=== PATIENT | female | born 1935 | race Caucasian/White ===

== ENCOUNTER 2018-04-18 22:45 | Inpatient (IN) | payer MEDICARE ==
[~2018-04-18] VITALS: Ht 147.3 cm; Wt 50.3 kg
--- NOTE | ~2018-04-18 | PR ---
[place], [place] PROGRESS NOTE NAME: RAVINDRA STEPHENS UNIT #: [id number] ROOM: 314 DOCTOR: DMITRIY SMITH MD BIRTHDATE: [birth year] DOS: 04/26/2018 INTERVAL NOTE CHIEF COMPLAINT: "I feel better, thank you for asking." SUMMARY OF THE VISIT: The patient was interviewed as she was sitting eating her breakfast. This was the first time she was out of her bed and she did not appear distraught and actually stated she is feeling better. She reported to me that she slept well and actually feels like eating this morning. MENTAL STATUS: She is alert and oriented with significant time gaps. Mood does seem to be finally trending towards euthymia. Affect is more appropriate. There is no vianey or hypomania. There were no voice delusional or paranoid symptoms. Short-term memory continues to be problematic. PLAN: I will go ahead and increase the nighttime Zyprexa from 5 to 7.5 mg at bedtime, engage in individual and lauren milieu activity, returning to the least restrictive environment when psychiatrically stable. DMITRIY SMITH MD CM:PNTRANS [id number] DMITRIY SMITH MD 04/26/18 1150 interface
--- NOTE | ~2018-04-18 | PR ---
[place], [place] PROGRESS NOTE NAME: RAVINDRA STEPHENS UNIT #: [id number] ROOM: 314 DOCTOR: KELSEY STEWART CNP BIRTHDATE: [birth year] DOS: 04/29/2018 CHIEF COMPLAINT: "I'm very good today." SUMMARY OF VISIT: The patient was interviewed as she sat eating her lunch in the dining room. The patient reports that she has a good appetite and that she slept well last night. Staff reports that the patient has not been exhibiting any behaviors today. She has been pleasant and cooperative. She has been taking her medications and juice. No paranoia or delusions noted today. MENTAL STATUS EXAMINATION: The patient was alert and oriented to herself. She was pleasant and cooperative with me. No vianey or hypomania noted. No delusions or paranoia noted. No psychotic symptoms noted. No auditory or visual hallucinations noted. Her mood was calm. No aggression or agitation noted. Affect congruent with mood. No lethargy noted. PLAN: Continue the patient's medications as prescribed as she appears to be tolerating them without any side effects. We will continue to encourage the patient to engage in individual and lauren milieu activity. Continue fall and safety precautions. Plan to return the patient to the least restrictive environment when she is considered psychiatrically stable. Kelsey Stewart CNP CM:PNTRANS [phone] KELSEY STEWART CNP 04/30/18 0208 interface
--- NOTE | ~2018-04-18 | PR ---
[place], [place] PROGRESS NOTE NAME: RAVINDRA STEPHENS UNIT #: [id number] ROOM: 314 DOCTOR: DMITRIY SMITH MD BIRTHDATE: [birth year] DOS: 04/30/2018 INTERVAL NOTE CHIEF COMPLAINT: "Oh, I don't need anything, thank you for asking, I already have coffee." SUMMARY OF THE VISIT: The patient was interviewed as she was sitting watching television, eating her breakfast. She had most of her breakfast eaten and was sipping on some coffee. She was pleasant and cooperative with me, although nurses do report that she did require p.r.n. intervention with excellent results. It appears that when she gets the Geodon, she has a very substantial improvement that last evening and into the next day. She tolerates the Geodon well. MENTAL STATUS: She is alert and oriented to person, not necessarily place and certainly not to time. Mood does still seem to be labile. Affect at times inappropriate. There is no vianey or hypomania. She is somewhat paranoid and delusional. Short-term memory remains poor. PLAN: I will discontinue her Risperdal in lieu of Geodon 40 mg in the morning and 60 mg at night. We will see if the oral form works as well as the intramuscular and we will monitor for risk, benefits, engage in individual and lauren milieu activity, returning to the least restrictive environment when psychiatrically stable. DMITRIY SMITH MD CM:PNTRANS 0 [phone] DMITRIY SMITH MD 04/30/18 1218 interface
--- NOTE | ~2018-04-18 | PR ---
[place], [place] PROGRESS NOTE NAME: RAVINDRA STEPHENS UNIT #: [id number] ROOM: 314 DOCTOR: DMITRIY SMITH MD BIRTHDATE: [birth year] DOS: 05/03/2018 INTERVAL NOTE CHIEF COMPLAINT: "Oh honey just keep up the good work, thank you so much." SUMMARY OF THE VISIT: The patient was interviewed as she was eating breakfast. She stopped and engaged readily in conversation. She was very bright and pleasant and voiced no complaints. She thanked me profusely for all the assistance I have given her. MENTAL STATUS: She is alert and oriented to person, place, not necessarily time. Mood does seem to have strongly trended towards euthymia. Affect is much more appropriate. Her speech rate and pattern is within normal limits. There is no hypomania or vianey. There are no gross psychotic symptoms. Short-term memory continues to be problematic. Otherwise, she is intact. PLAN: I will continue her current psychotropic regimen, continue to engage in individual and lauren milieu activity, returning to the least restrictive environment when psychiatrically stable. DMITRIY SMITH MD CM:PNTRANS [id number] DMITRIY SMITH MD 05/04/18 0237 interface
--- NOTE | ~2018-04-18 | PR ---
[place], [place] PROGRESS NOTE NAME: [facility]PH[id number] UNIT #: [id number] ROOM: 314 DOCTOR: DMITRIY SMITH MD BIRTHDATE: [birth year] DOS: 05/01/2018 CHIEF COMPLAINT: "Oh, I am fine, thank you for asking." SUMMARY OF THE VISIT: The patient was interviewed as she was sitting down to have her breakfast. She had not touched it, but did stop and engage in conversation with us. She was pleasant and engaging and offered no complaints. There was no agitation or aggression. There was no paranoia. She does seem to be tolerating the oral Geodon well, and I do not see sedation, somnolence, extrapyramidal symptoms or tardive dyskinesia. Nurses report a substantial improvement has been noted since the Geodon has been started and her behavior has been much more redirectable and on target. MENTAL STATUS: She remains alert and oriented to person, place, not necessarily time. Mood does seem to be strongly trending towards euthymia. Affect is more appropriate. There is no vianey, hypomania or psychosis. Short term memory continues to have issues. PLAN: We will maintain her current psychotropic regimen. Continue to engage in individual and lauren milieu activity, returning to the least restrictive environment when psychiatrically stable. DMITRIY SMITH MD CM:PNTRANS [phone] DMITRIY SMITH MD 05/01/18 1020 interface
--- NOTE | ~2018-04-18 | CON ---
[place], [place] REPORT OF CONSULTATION NAME: [id number] UNIT #: [id number] ROOM: 314 DOCTOR: PHD HENRY ISRAEL BIRTHDATE: [birth year] DOS: 04/19/2018 HISTORY OF PRESENT ILLNESS: The patient is an 82-year-old female referred by Dr. Polanco for a competency evaluation. At the present time, she is on the [facility]. The patient is a poor historian. She says she lives with her son and is a . She could not say how many children she has. She denied alcohol, tobacco and illegal drug use. PAST MEDICAL HISTORY: Chronic kidney disease, dementia, depression. MEDICATIONS: Exelon, Namenda, Remeron, Theragran, Risperdal, Geodon, Ativan. The patient was awake, alert and oriented to person. She gave the date as , 05/15/2019. She stated at first that Leandro was the president, then later self corrected to Elis. Mood was depressed with the patient crying, stating that she just lost her youngest son, although she could not say how he . She was confused in conversation demonstrating significant memory deficits. She was initially brought to the hospital due to a striking change in her mental status. While in the Emergency Room, she was found to have a UTI. Per her medical record, she has a history of confusion, to what extent her current presentation is due to her UTI remains unclear. I will continue to follow her to assess for the need for guardianship. DIAGNOSES: Major depressive disorder, recurrent with psychotic features, Alzheimer's dementia, rule out delirium. RECOMMENDATIONS: The patient does not appear to be competent at this time; however, she does have a UTI. I will reassess her on Monday to allow for continued medical treatment and to determine the need for guardianship. Thank you very much for this consult. Amy Israel, PhD CM:CONSTR:REPORT OF CONSULTATION 1643 04/20/18 0147 interface
--- NOTE | ~2018-04-18 | PR ---
[place], [place] PROGRESS NOTE NAME: RAVINDRA STEPHENS UNIT #: [id number] ROOM: 314 DOCTOR: DMITRIY SMITH MD BIRTHDATE: [birth year] DOS: 04/25/2018 INTERVAL NOTE CHIEF COMPLAINT: "Oh, I just want to get better." SUMMARY OF THE VISIT: The patient was interviewed as she was resting quietly in her bed. She reports that she was still feeling somewhat nauseated and she does not remember falling last evening, but did not sustain any injuries. This morning, she says she would like to attempt to eat something and hope she can how hold it down. She was pleasant and cooperative and very engaging. MENTAL STATUS: She is alert and oriented with significant time gaps. Mood does seem to be more euthymic. Affect is more appropriate. She is more cooperative and engaging in conversation. There are no symptoms of hypomania or vianey. There is no gross psychosis. Short-term memory continues to be problematic. PLAN: I will renew her Ativan p.r.n., should she require it. I will discontinue the Abilify in lieu of Zyprexa 5 mg at bedtime. The Zyprexa should augment the effectiveness of the antidepressant, stabilize her mood and decrease any psychosis. It also has antinausea and vomiting properties which we can at least use, endorses benefit. We will engage in individual and lauren milieu activity, returning to the least restrictive environment when psychiatrically stable. DMITRIY SMITH MD CM:PNTRANS [id number] DMITRIY SMITH MD 04/25/18 1153 interface
--- NOTE | ~2018-04-18 | PR ---
[place], [place] PROGRESS NOTE NAME: [facility]DRA STEPHENS [id number] UNIT #: [id number] ROOM: 314 DOCTOR: DMITRIY SMITH MD BIRTHDATE: [birth year] DOS: 04/24/2018 CHIEF COMPLAINT: "Yeah, I thought they were trying to poison me yesterday. I think though I'll have breakfast today." SUMMARY OF THE VISIT: The patient was interviewed as she was resting quietly in bed. She did seem to be more goal oriented in her thinking and did seem to be slightly less paranoid and delusional than she had been previously. She was able to at least entertain the possibility that people are not out to get her here, but stated that she believed that truly yesterday. She did not experience any side effects from any of the medications and I did not see sedation, somnolence, extrapyramidal symptoms or tardive dyskinesia. MENTAL STATUS: She is alert and oriented to person, place, not necessarily time. Mood does seem to be trending towards euthymia. Affect is more appropriate. There is no vianey or hypomania. The delusions seem to be lessening in frequency and intensity. Short term memory continues to be problematic. PLAN: I will renew her p.r.n. Ativan should she require intervention and increase her Abilify from 10 to 15 mg at bedtime in an effort to further eliminate psychosis and stabilize mood. Engage in individual and lauren milieu activity, returning to the least restrictive environment when psychiatrically stable. DMITRIY SMITH MD CM:PNTRANS [id number] DMITRIY SMITH MD 04/25/18 0051 interface
--- NOTE | ~2018-04-18 | PR ---
[place], [place] PROGRESS NOTE NAME: RAVINDRA STEPHENS UNIT #: [id number] ROOM: 314 DOCTOR: PHD HENRY ISRAEL BIRTHDATE: [birth year] DOS: 04/23/2018 I followed up with the patient for competency. She declined to speak with me in length. She was oriented to person, stated she was at [facility] and gave the date as 07/23/2018. She gave Leandro as a president and could not name any current events. She could spell world forwards, but not backwards. I will attempt to reengage her tomorrow. Amy Israel, CM:PNMARK [phone] PHD HENRY ISRAEL 04/24/18 1134 interface
--- NOTE | ~2018-04-18 | PR ---
[place], [place] PROGRESS NOTE NAME[id number] UNIT #: [id number] ROOM: 314 DOCTOR: DMITRIY SMITH MD BIRTHDATE: [birth year] DOS: 04/23/2018 INTERVAL NOTE CHIEF COMPLAINT: "I am going to be here soon. They are trying to kill me." SUMMARY OF THE VISIT: The patient was interviewed. She was sitting there in front of her entire plate of breakfast and stated to me she would not eat because she was fearful that she was going to . She did state that she had requested a piece of chocolate cake, but the staff deliberately told her she could not have it in an attempt to punish her. She continues to be very depressed and very nihilistic in her thinking. MENTAL STATUS: She is alert and oriented with significant time gaps. Mood does seem to be very depressed and down. There is also a significant amount of paranoia and neologism present. Short-term memory has gaps. PLAN: I will maximize out her dose of Namenda, bringing it to 10 mg b.i.d. I will increase her Abilify from 2-10 mg at bedtime in an effort to combat the psychotic symptoms as well as to augment the antidepressant. We will continue to engage in individual and lauren milieu activities, returning to the least restrictive environment when psychiatrically stable. DMITRIY SMITH MD CM:PNTRANS [id number] DMTIRIY SMITH MD 04/23/18 1252 interface
--- NOTE | ~2018-04-18 | WRIGHTHP ---
[place], [place] PATIENT HISTORY AND PHYSICAL EXAM NAME: [facility] STEPHENS [id number] UNIT #: [id number] ROOM: 314 DOCTOR: DMITRIY SMITH MD BIRTHDATE: [birth year] DOS: 04/19/2018 INITIAL PSYCHIATRIC EVALUATION CHIEF COMPLAINT: "Call my for me, I don't need to be here, I need to go home." HISTORY OF PRESENT ILLNESS: This is an 82-year-old white female who was sent here on an involuntary basis from [facility] Emergency Room. The patient was brought there by her son because the patient had a substantial change in mental status. She became increasingly more confused, although her baseline is one of confusion. She also had been actively hallucinating and was very delusional. She was seeing things that were not there and she was responding to unforeseen others. While in the Emergency Room, she was found to have a UTI and was started on Bactrim. Given the severity of her symptoms and the fact that she was not attending to her ADLs and was acting quite bizarrely, it was felt that a further psychiatric inpatient stay was warranted. She was admitted now to rule out further organic factors, to stabilize on medication, to engage in individual and lauren milieu activity with the ultimate plan to return to the least restrictive environment when psychiatrically stable. PAST MEDICAL HISTORY: Remarkable for a history of major depression, recurrent; Alzheimer dementia and chronic kidney disease stage 3. SOCIAL HISTORY: The patient does not drink alcohol. She does not smoke cigarettes and she does not use illicit drugs. MENTAL STATUS: She is alert and oriented to person, unclear place, not time. Mood this morning seem to be very depressed and very anxious. She was somewhat fretful and did not always answer questions appropriately. She was very much fixated on leaving the hospital and being able to call her . She was somewhat guarded and suspicious and was not forthcoming with information. She does process conversation slowly and short term memory continued to be problematic. DIAGNOSIS: Major depression, recurrent with psychotic features, Alzheimer dementia. PLAN: I have discontinued her Zoloft and her Aricept in lieu of Exelon patch 4.6 mg a day and Remeron 15 mg at bedtime. I have also ordered a low dose Risperdal 0.5 mg twice daily to impact positively on her psychotic symptoms. We will now also augment the Exelon with Namenda starting at 5 mg a day. Routine screening examinations have been unremarkable. We will continue to rule out organic factors, continue to engage in individual and lauren milieu activity with the plan to return to the least restrictive environment when stable. [place], [place] PATIENT HISTORY AND PHYSICAL EXAM NAME: RAVINDRA STEPHENS UNIT #: [id number] ROOM: [facility] DOCTOR: DMITRIY SMITH MD BIRTHDATE: [birth year] DMITRIY SMITH MD CM:HISPHYS:PATIENT HISTORY AND PHYSICAL EXAMINATION [phone] DMITRIY SMITH MD 04/19/18 1209 interface
--- NOTE | ~2018-04-18 | PR ---
[place], [place] PROGRESS NOTE NAME: RAVINDRA STEPHENS UNIT #: [id number] ROOM: 314 DOCTOR: KELSEY STEWART CNP BIRTHDATE: [birth year] DOS: 04/28/2018 CHIEF COMPLAINT: "I am making a mess." SUMMARY OF THE VISIT: The patient was interviewed as she was standing in the hallway shredding her brief. The patient engaged readily in conversation with me. She reports that she noted she is making a mess; however, she will clean it up. The patient reports that she noted that her food is being poisoned and that her fluids are being poisoned and that we were all out to kill her. Staff reports that the patient only slept 3-1/2 hours last night and has been noncompliant with her medication. MENTAL STATUS: The patient was alert and oriented to herself. She was pleasant and cooperative with me; however, she is unable to be redirected at this time. The patient appears to be delusional as well as paranoid. No auditory or visual hallucinations noted. Her mood seems somewhat agitated and her affect is congruent with her mood. PLAN: I am going to discontinue her Zyprexa at bedtime. She has been noncompliant with medication. We will start her on Risperdal M-Tab 0.5 twice a day with the hopes that this will be able to be dissolved in fluids and that the patient will take her medication. We will continue to encourage the patient to engage in individual and lauren milieu activity. We will continue fall and safety precautions. We will plan to return the patient to the least restrictive environment when she is considered psychiatrically stable. Kelsey Stewart CNP CM:PNTRANS [phone] [id number] KELSEY STEWART CNP 04/28/181857 interface
--- NOTE | ~2018-04-18 | PR ---
[place], [place] PROGRESS NOTE NAME: [facility] STEPH[id number] UNIT #: [id number] ROOM: 314 DOCTOR: SAMIR, PHD FIGUEROA BIRTHDATE: [birth year] DOS: 04/24/2018 I met with the patient to follow up on guardianship versus power of finance attorney. The patient was awake, alert and oriented to person and time. She believes she is across the street from [facility]. She could name the president and spell world forwards and backwards, but became very easily confused. On serial sevens, she demonstrated significant short and long-term memory deficits conversationally. Affect was blunted and mood was stable. Speech was slow. Receptive and expressive language appeared within normal limits conversationally. Thought content was noteworthy for delusions. Insight and judgment were poor. The patient does appear to have improved somewhat, but still does not appear competent to make her own healthcare decisions at this time. In my opinion, the patient would benefit from establishing guardianship. DIAGNOSIS: DICTATION ENDS HERE Amy Israel, PhD CM:LUC [id number] PHD HENRY ISRAEL 04/25/18 0419 interface
--- NOTE | ~2018-04-18 | DS ---
[place], [place] DISCHARGE SUMMARY NAME: RAVINDRA STEPHENS [facility] #: [id number] UNIT #: [id number] ROOM: 314 DOCTOR: DMITRIY SMITH MD BIRTHDATE: [birth year] DOS: 05/04/2018 CHIEF COMPLAINT: "Call my for me, I don't need to be here, I need to go home." HISTORY OF PRESENT ILLNESS: This is an 82-year-old white female who was sent here on an involuntary basis from [facility] Emergency Room. The patient was brought there by her son because of a substantial change in mental status. The patient had become increasingly more confused and was actively hallucinating and very delusional. She was seeing things that were not there and was responding to unforeseen others. While in the Emergency Room, she was found to have a UTI and was started on Bactrim. Given the severity of her symptoms and her inability to attend to her ADLs, it was felt that an inpatient stabilization was warranted. SUMMARY OF HOSPITAL COURSE: The patient was admitted to the unit where her Zoloft and Aricept were discontinued in lieu of Exelon patch 4.6 mg a day and Remeron 15 mg at bedtime and low dose Risperdal was added to break the psychotic symptoms and later the Exelon was augmented with Namenda in order to fully improve ADLs, behavior and cognition. The patient tolerated the Exelon and the Namenda well and these were quickly brought to their maximum dose of Exelon patch 13.3 mg a day and Namenda 10 mg b.i.d. The patient did seem to do better when she received Geodon p.r.n. and the Risperdal was subsequently discontinued in lieu of Geodon 40 mg in the morning and 60 mg at night with extremely excellent results. The patient improved dramatically to the point where she was able to engage in individual and lauren milieu activities. She smiled readily and voiced positive plans for the future. She remains grossly confused, however, and did require a great deal of assistance with ADLs. Dr. Amy Israel, psychologist, did deem her incompetent and it was felt that she would do best with a long-term care placement. The patient was eventually discharged then to [facility] where we will follow. MENTAL STATUS AT DISCHARGE: The patient was alert and oriented to person, not necessarily place and certainly not time. Mood was euthymic. Affect appropriate. There is no vianey or hypomania. Short term memory is very poor. FINAL DIAGNOSES UPON DISCHARGE: Major depression, recurrent with psychotic features and Alzheimer's dementia. DISPOSITION: The patient is being admitted to [facility], I will be the treating psychiatrist of record. At the time of discharge, she was psychiatrically stable. There were no acute medical problems. All of her prescriptions were printed and were sent with her. [place], [place] DISCHARGE SUMMARY NAME: RAVINDRA STEPHENS UNIT #: [id number] ROOM: 314 DOCTOR: DMITRIY SMITH MD BIRTHDATE: [birth year] DMITRIY SMITH MD CM:DISCHPAT 0938 DMITRIY SMITH MD 05/04/18 0954 interface
--- NOTE | ~2018-04-18 | PR ---
[place], [place] PROGRESS NOTE NAME: RAVINDRA STEPHENS UNIT #: [id number] ROOM: 314 DOCTOR: DMITRIY SMITH MD BIRTHDATE: [birth year] DOS: 04/20/2018 INTERVAL NOTE CHIEF COMPLAINT: "I guess, I am here because I am not eating. If somebody helps me, I will go and have breakfast." SUMMARY OF THE VISIT: The patient was interviewed as she was lying in bed. She was resting in the position, but did awake easily and engaged readily in conversation. She reported to me that she has been here since the early part of March and that per her recollection, she is here because she has not been eating well. She was much more goal directed in her thinking than she was yesterday, much less flighty and distracted. She was not able to put a lot of detail behind her answers, but nonetheless did seem to be more cooperative. Nurses report that she did not sleep well last night and her p.o. intake has been significantly on the poor side. MENTAL STATUS: She is alert and oriented to person, possibly place, not to time. Mood does seem to be somewhat more euthymic. Affect is more appropriate. There is no vianey, hypomania or psychosis derived from my conversation; however, nurses report that she has been preoccupied that many of her children are , which is not reality. Short term memory continues to be problematic for her. PLAN: I will increase Exelon patch from 4.6 mg daily to 9.5 mg daily. I will plan to increase the Namenda and Exelon patch over the weekend as needed and as tolerated. We will engage in individual and lauren milieu activity with the plan to return to the least restrictive environment when psychiatrically stable. DMITRIY SMITH MD CM:PNTRANS 6 DMITRIY SMITH MD 04/20/18 0945 interface
--- NOTE | ~2018-04-18 | PR ---
[place], [place] PROGRESS NOTE NAME: [id number] UNIT #: [id number] ROOM: [id number] DOCTOR: DMITRIY SMITH MD BIRTHDATE: [birth year] DOS: 05/02/2018 CHIEF COMPLAINT: "Oh, I am okay, thanks for asking." SUMMARY OF THE VISIT: The patient was interviewed as she was sitting eating her breakfast. She was very engaging in conversation. There was no agitation or aggression. There was no mood lability. There are no psychotic symptoms voiced. Overall, she has trended towards significant improvement and has become very bright and pleasant. MENTAL STATUS: She is alert and oriented to person, place, but not time. Mood does seem to be strongly trending towards euthymia. Affect is more appropriate. There is no symptom suggestive of hypomania or vianey. There are no gross psychotic symptoms. Short term memory continues to have gaps, otherwise she is intact. PLAN: I will maintain her current psychotropic regimen, continue to engage in individual and lauren milieu activity with the ultimate plan to return to the least restrictive environment when psychiatrically stable. DMITRIY SMITH MD CM:PNTRANS [id number] DMITRIY SMITH MD 05/02/18 1357 interface
[2018-04-18] MEDS ORDERED: ZOLOFT100 MG PO (23:30)
[2018-04-18] MEDS ORDERED: ARICEPT10 M1 PO (23:31)
[2018-04-18] MEDS ORDERED: ONCE DAILY1 EACH PO (23:34)
[2018-04-18] MEDS ORDERED: MILK THISTLE140 MG PO (23:35)
[2018-04-19 00:38] VITALS: BP 118/58
[2018-04-19 01:00] VITALS: BP 118/58
[2018-04-19 02:15] LABS: BILIRUBIN NEGATIVE (NEGATIVE); BLOOD 2+ (NEGATIVE); CLARITY CLOUDY (CLEAR); COLOR YELLOW (YELLOW); GLUCOSE NEGATIVE (NEGATIVE); KETONE TRACE (NEGATIVE); LEUKO ESTERASE 3+ (NEGATIVE); NITRITE NEGATIVE (NEGATIVE); PH 6.5 (5.0-9.0); SPECIFIC GRAVITY 1.015 (1.005-1.030); UROBILINOGEN 0.2 E.U./dl (0.2-1.0)
[2018-04-19 02:42] LABS: WBC 41-50 wbc/hpf (0-5)
[2018-04-19 02:43] LABS: BACTERIA 4+; RBC 21-30 rbc/hpf (0-2)
[2018-04-19 07:05] LABS: BASO # 0.1 10*3/uL (0.0-0.1); BASO % 0.5 % (0.0-1.0); EOS # 0.3 10*3/uL (0.0-0.4); EOS % 2.3 % (1.0-4.0); HEMATOCRIT 40.3 % (37.0-47.0); HEMOGLOBIN 13.1 g/dl (12.0-16.0); LYMPH # 2.8 10*3/uL (1.3-4.4); LYMPH % 25.8 % (27.0-41.0); MEAN CELL VOLUME 92.6 fl (81.0-99.0); MEAN CORPUSCULAR HGB 30.1 pg (27.0-31.0); MEAN CORPUSCULAR HGB CONC 32.5 g/dl (33.0-37.0); MEAN PLATELET VOLUME 11.2 fl (9.6-12.3); NEUT # 6.7 10*3/uL (2.3-7.9); PLATELET COUNT AUTOMATED 212 10*3/uL (130-400); RED BLOOD COUNT 4.35 10*6/uL (4.10-5.10); RED CELL DISTRI WIDTH 14.2 % (0-14.5); WHITE BLOOD COUNT 10.8 10*3/uL (4.8-10.8)
[2018-04-19 07:34] LABS: ALBUMIN 2.9 gm/dl (3.1-4.5); ALKALINE PHOSPHATASE 79 U/L (45-117); BUN 22 mg/dl (7-24); CHLORIDE 108 mmol/L (98-107); CHOLESTEROL 185 mg/dL (<200); CREATININE 1.05 mg/dL (0.55-1.02); HDL CHOLESTEROL 44 mg/dl (40-60); LDL CHOLESTEROL 124 mg/dL (9-159); POTASSIUM 4.2 mmol/L (3.5-5.1); SGOT/AST 18 IU/L (3-35); SGPT/ALT 22 U/L (12-78); SODIUM 142 mmol/L (136-145); TOTAL PROTEIN 7.1 gm/dL (6.4-8.2); TRIGLYCERIDES 87 mg/dl (<150); VLDL CHOLESTEROL 17 mg/dL (6-40)
[2018-04-19 07:42] LABS: VITAMIN D, 25-HYDROXY 30.5 ng/mL (30-100)
[2018-04-19 07:58] VITALS: BP 113/57
[2018-04-19 20:00] VITALS: BP 111/48
[2018-04-19 20:30] VITALS: BP 118/60
[2018-04-20 08:25] VITALS: BP 116/41
[2018-04-20 19:29] VITALS: BP 124/64
[2018-04-21 08:17] VITALS: BP 120/55
[2018-04-21 20:14] VITALS: BP 118/60
[2018-04-22 07:29] VITALS: BP 122/66
[2018-04-22 19:52] VITALS: BP 126/69
[2018-04-23 07:59] VITALS: BP 121/65
[2018-04-23 20:07] VITALS: BP 133/75
[2018-04-24 07:56] VITALS: BP 123/69
[2018-04-24 20:00] VITALS: BP 122/74
[2018-04-25 02:20] VITALS: BP 137/56
[2018-04-25 08:29] VITALS: BP 145/54
[2018-04-25 10:09] LABS: BASO % 0.2 % (0.0-1.0); EOS # 0.1 10*3/uL (0.0-0.4); EOS % 0.9 % (1.0-4.0); HEMATOCRIT 41.4 % (37.0-47.0); HEMOGLOBIN 13.4 g/dl (12.0-16.0); LYMPH # 0.6 10*3/uL (1.3-4.4); LYMPH % 4.6 % (27.0-41.0); MEAN CORPUSCULAR HGB 29.5 pg (27.0-31.0); MEAN CORPUSCULAR HGB CONC 32.4 g/dl (33.0-37.0); MEAN PLATELET VOLUME 10.7 fl (9.6-12.3); MONO # 0.8 10*3/uL (0.1-1.0); MONO % 6.1 % (3.0-9.0); NEUT % 87.6 % (47.0-73.0); PLATELET COUNT AUTOMATED 180 10*3/uL (130-400); RED BLOOD COUNT 4.55 10*6/uL (4.10-5.10); RED CELL DISTRI WIDTH 14.3 % (0-14.5); WHITE BLOOD COUNT 12.6 10*3/uL (4.8-10.8)
[2018-04-25 10:31] LABS: ALBUMIN 3.1 gm/dl (3.1-4.5); ALKALINE PHOSPHATASE 79 U/L (45-117); BUN 17 mg/dl (7-24); CHLORIDE 106 mmol/L (98-107); POTASSIUM 3.8 mmol/L (3.5-5.1); SGOT/AST 30 IU/L (3-35); SGPT/ALT 31 U/L (12-78); SODIUM 143 mmol/L (136-145); TOTAL PROTEIN 7.6 gm/dL (6.4-8.2)
[2018-04-25 11:30] VITALS: BP 123/45
[2018-04-25 19:50] VITALS: BP 142/62
[2018-04-26 07:19] VITALS: BP 132/64
[2018-04-26 19:25] VITALS: BP 124/67
[2018-04-27 07:18] VITALS: BP 136/72
[2018-04-27 20:00] VITALS: BP 114/68
[2018-04-28 08:24] VITALS: BP 124/64
[2018-04-28 20:00] VITALS: BP 110/70
[2018-04-29 08:07] VITALS: BP 114/58
[2018-04-29 20:00] VITALS: BP 120/58
[2018-04-30 07:01] VITALS: BP 127/67
[2018-04-30 20:00] VITALS: BP 118/62
[2018-05-01 07:46] VITALS: BP 110/67
[2018-05-01 19:50] VITALS: BP 120/66
[2018-05-02 07:44] VITALS: BP 124/62
[2018-05-02 20:00] VITALS: BP 122/60
[2018-05-03 08:11] VITALS: BP 111/52
[2018-05-03] MEDS ORDERED: Vitamin D PO (08:51)
[2018-05-03] MEDS ORDERED: ZIPRASIDONE HCL60 M1 PO (08:51)
[2018-05-03] MEDS ORDERED: ZIPRASIDONE HCL40 MG PO (08:51)
[2018-05-03] MEDS ORDERED: MIRTAZAPINE15 M2 PO (08:51)
[2018-05-03] MEDS ORDERED: MEMANTINE HCL10 MG PO (08:51)
[2018-05-03] MEDS ORDERED: EXELON13.3 MG/21 T (08:51)
[2018-05-03 19:16] VITALS: BP 123/62
[2018-05-04 07:16] VITALS: BP 106/61
== END 2018-05-04 10:03 | disposition other institution (70) | DRG 57 ==
LOC: 3N 22:45
PROVIDERS: Family Medicine; ADMIT Psychiatry & Neurology Psychiatry
DX: G30.9 Alzheimer's disease, unspecified (principal); F23 Brief psychotic disorder; N39.0 Urinary tract infection, site not specified; F33.3 Major depressive disorder, recurrent, severe with psychotic symptoms; N18.3 Chronic kidney disease, stage 3 (moderate); F02.80 Dementia in other diseases classified elsewhere, unspecified severity, without behavioral disturbance, psychotic disturbance, mood disturbance, and anxiety; Z90.49 Acquired absence of other specified parts of digestive tract; Z87.891 Personal history of nicotine dependence